=== PATIENT | female | born 1985 | race Two or more races ===

== ENCOUNTER 2019-06-10 16:42 | Emergency (ER) | payer OTHER ==
[~2019-06-10] VITALS: Ht 157.5 cm; Wt 77.1 kg
[2019-06-10 17:11] VITALS: BP 123/78
[2019-06-10 17:34] LABS: Urine Bacteria NONE SEEN /hpf (None Seen); Urine Blood Negative /uL (Negative); Urine Mucus FEW (None Seen); Urine Specific Gravity 1.015 (1.001-1.035); Urine WBC 102 /hpf (0 - 5)
== END 2019-06-10 17:40 | disposition home or self-care (01) ==
LOC: ER 16:46
DX: N39.0 Urinary tract infection, site not specified (principal)
CPT/HCPCS: 81001; 81025